=== PATIENT | female | born 1975 | race Two or more races ===

== ENCOUNTER 2017-05-09 12:37 | Emergency (ER) | payer MEDICAID ==
[~2017-05-09] VITALS: Wt 62.3 kg
[2017-05-09] MEDS ORDERED: SOD CHLORIDE 0.9% 1,000 ML IV STA (14:29)
[2017-05-09] MEDS ORDERED: morphine 4 MG/ML VIAL IV STA (14:29)
[2017-05-09] MEDS ORDERED: ONDANSETRON 4 MG INJ IV STA (14:29)
[2017-05-09 15:17] LABS: BASOPHILS % 0.2 % (0.0-2.0); EOSINOPHILS % 0.7 % (0.0-7.0); HEMATOCRIT 38.9 % (37.0-47.0); HEMOGLOBIN 12.7 g/dl (12.0-16.0); LYMPHOCYTES # 0.6 10^3/ul (0.8-2.9); LYMPHOCYTES % 10.7 % (15.0-51.0); MEAN CORPUSCULAR HGB CONC 32.6 g/dl (32.0-37.0); MEAN CORPUSCULAR VOLUME 91.7 fl (82.0-101.0); MEAN PLATELET VOLUME 10.1 fl (7.4-10.4); MONOCYTE # 0.3 10^3/ul (0.3-0.9); MONOCYTES % 4.5 % (0.0-11.0); NEUTROPHILS % 83.7 % (39.0-77.0); PLATELET COUNT 267 10^3/UL (140-415); RED BLOOD COUNT 4.24 10^6/ul (4.20-5.40); RED CELL DISTRIBUTION WIDTH 12.6 % (11.5-14.5)
[2017-05-09 15:30] LABS: ADD UMIC NO; UR ASCORBIC ACID NEGATIVE (NEGATIVE); UR BILIRUBIN (Dip) NEGATIVE (NEGATIVE); UR BLOOD (Dip) NEGATIVE (NEGATIVE); UR CLARITY CLEAR (CLEAR); UR COLOR STRAW (YELLOW); UR GLUCOSE (Dip) NEGATIVE (NEGATIVE); UR KETONES (Dip) NEGATIVE (NEGATIVE); UR LEUKOCYTE ESTERASE (Dip) NEGATIVE Leu/ul (NEGATIVE); UR NITRITE (Dip) NEGATIVE (NEGATIVE); UR SPECIFIC GRAVITY (Dip) 1.004 (1.003-1.030); UR TOTAL PROTEIN (Dip) NEGATIVE (NEGATIVE); UR UROBILINOGEN (Dip) NEGATIVE (NEGATIVE)
[2017-05-09 15:48] LABS: ALBUMIN 4.3 g/dl (3.3-4.9); ALBUMIN/GLOBULIN RATIO 1.48; BILIRUBIN,INDIRECT 0.4 mg/dl (0-1.1); BILIRUBIN,TOTAL 0.4 mg/dl (0.2-1.3); CALCIUM 8.5 mg/dl (8.4-10.2); CREATININE 0.59 mg/dl (0.44-1.00); POTASSIUM 3.6 mmol/L (3.5-5.1); TOTAL PROTEIN 7.2 g/dl (6.1-8.1)
--- NOTE | 2017-05-09 16:25 | RADRPT ---
PROCEDURE: CT abdomen and pelvis without contrast. CLINICAL INDICATION: Left lower quadrant abdominal pain. TECHNIQUE: CT of the abdomen and pelvis was performed without contrast. Coronal and sagittal reform atted images were obtained from the axial source images. Images were reviewed on a high-resolution [employer] workstation. The total exam CTDI equals 8.53 mGy and the total exam DLP equals 458.4 mGy-cm. DIC OM images are available. One or more of the following dose reduction techniques were used: - Automated exposure control. - Adjustment of the mA and/or kV according to patient size. - Use of iterative reconstruction technique. COMPARISON: Pelvic ultrasound dated 05/09/2017. FINDINGS: Visualized lower thorax: The visualized lung bases are clear. The visualized heart is unremarkable. There is a small hiatal hernia. Hepatobiliary system and spleen: The liver is grossly unremarkable. There is no intra or extrahepat ic biliary ductal dilatation. The gallbladder is grossly unremarkable. The spleen is grossly unremar kable. The pancreas is grossly unremarkable. Adrenal glands and genitourinary system: The adrenal glands are grossly unremarkable. There is no n ephrolithiasis or hydronephrosis. The urinary bladder is grossly unremarkable. There is a simple ap pearing 3 cm left ovarian cyst. The uterus and adnexa are otherwise grossly unremarkable. Gastrointestinal system: There is no bowel wall thickening or evidence of obstruction. The appendix is in the right lower quadrant and is unremarkable. Peritoneum, vascular, and lymphatics: There is no free intraperitoneal air or free fluid. There is no mesenteric or retroperitoneal adenopathy. The aorta is nonaneurysmal. There is a small fat contai pippa umbilical hernia. Musculoskeletal system and soft tissues: There are no concerning osseous lesions. The soft tissues are unremarkable. IMPRESSION: 1. No acute abnormality or findings to suggest a source of the patient's symptoms. 2. Small hiatal hernia. 3. Benign, simple appearing 3 cm left ovarian cyst. Pelvic ultrasound can be performed as clinicall y warranted, given the patient's symptoms. 4. Small fat containing umbilical hernia. RPTAT: HLBP .Avtar Damon MD, Date Time Electronically viewed and signed by .Avtar Damon MD, on 05/09/2017 16:25 .P/
--- NOTE | 2017-05-09 16:29 | RADRPT ---
PROCEDURE: US pelvis CLINICAL INDICATION: Pelvic pain for 4 days TECHNIQUE: Transabdominal and endovaginal pelvic sonography was performed COMPARISON: None available FINDINGS: The patient's last menstrual period began on 02/27/2017. The partially distended bladder is unremarkable. Physiologic amount of free pelvic fluid. Slightly dilated left parametrial veins. Uterus: Size: 10.7 x 5.0 x 6.9 cm Presentation: Anteverted, anteflexed Appearance: Homogeneous echotexture Endometrium: 1.4 mm in thickness. No mass or increased vascularity seen. Cervix: Limited visualization of the cervix reveals no abnormality. The right ovary is not visualized. Left ovary: Size: Not measured; the left ovary is not seen in its entirety Appearance: 2.6 x 2.8 x 2.8 cm left ovary cyst. Blood flow: Not assessed IMPRESSION: 1. Right ovary not visualized. Small left ovary cyst. The left ovary is not seen in its entirety an d thus not optimally assessed. 2. Slightly enlarged uterus is unremarkable. If clinically indicated, correlate with serum test. RPTAT: TT Physician Fernandez Date Time Electronically viewed and signed by Physician Fernandez on 05/09/2017 16:29 JS/
[2017-05-09] MEDS ORDERED: IBUP-1542 PO (16:50)
[2017-05-09] MEDS ORDERED: HYDR-906 PO (16:51)
--- NOTE | 2017-05-09 17:11 | ERD ---
ER Documentation Chief Complaint Chief Complaint HEADACHE, NAUSEA, ABD PAIN, ONSET 1 WEEK HPI 42-year-old female presents to the ER with multiple complaints. Patient states that she has had headaches for the last month and has nausea, and nonbilious nonbloody vomiting. Denies any trauma she denies any photophobia. He denies any fevers or chills. Patient is also complaining of lower pelvic pain which started 3 months ago and has been intermittent. She denies any vaginal discharge. She denies any urinary frequency or dysuria. She denies any diarrhea. Her last normal menstrual period was 3 months ago, however she is taking control. ROS 12 point review of systems was done, all negative except per HPI. Medications Home Meds Active Scripts Hydrocodone/Acetaminophen ([place] 5-325 Tablet) 1 Each Tablet, 1 TAB PO Q6H Y for PAIN, #10 TAB Prov:ETHAN CHAMPION 05/09/17 Ibuprofen* (Motrin*) 600 Mg Tab, 600 MG PO Q6, #30 TAB Prov:AKIRAETHAN C 05/09/17 Allergies Allergies: Coded Allergies: No Known Drug Allergies (Verified Allergy, Unknown, 06/24/11) PMhx/Soc Medical and Surgical Hx: pt denies Medical Hx, pt denies Surgical Hx Hx Alcohol Use: No Hx Substance Use: No Hx Tobacco Use: No Smoking Status: Never smoker Physical Exam Vitals Vital Signs Date Time Temp Pulse Resp B/P Pulse Ox O2 Delivery O2 Flow Rate FiO2 05/09/17 12:40 98.0 93 18 154/93 100 Physical Exam GENERAL: The patient is well developed and appropriate for usual state of health , in no apparent distress. HEENT: Atraumatic. CHEST: Clear to auscultation bilaterally. There are no rales, wheezes or rhonchi. HEART: Regular rate and rhythm. No murmurs, clicks, rubs or gallops. ABDOMEN: tender to palpation in the left pelvic area. no rebound tenderness, gaurding or peritoneal signs. NEURO: Alert and oriented. CN 2-12 are intact. negative rhomberg sign SKIN: The skin is warm and dry. Result Diagram: 05/09/17 1450 05/09/17 1450 Results 24 hrs Laboratory Tests Test 05/09/17 14:40 05/09/17 14:50 Urine Color STRAW Urine Clarity CLEAR Urine pH 8.0 Urine Specific [place] 1.004 Urine Ketones NEGATIVEmg/dL Urine Nitrite NEGATIVEmg/dL Urine Bilirubin NEGATIVEmg/dL Urine Urobilinogen NEGATIVEmg/dL Urine Leukocyte Esterase NEGATIVELeu/ul Urine Hemoglobin NEGATIVEmg/dL Urine Glucose NEGATIVEmg/dL Urine Total Protein NEGATIVEmg/dl White Blood Count 6.010^3/ul Red Blood Count 4.2410^6/ul Hemoglobin 12.7g/dl Hematocrit 38.9% Mean Corpuscular Volume 91.7fl Mean Corpuscular Hemoglobin 30.0pg Mean Corpuscular Hemoglobin Concent 32.6g/dl Red Cell Distribution Width 12.6% Platelet Count 70931^3/UL Mean Platelet Volume 10.1fl Neutrophils % 83.7% Lymphocytes % 10.7% Monocytes % 4.5% Eosinophils % 0.7% Basophils % 0.2% Nucleated Red Blood Cells % 0.0/100WBC Neutrophils # 5.010^3/ul Lymphocytes # 0.610^3/ul Monocytes # 0.310^3/ul Eosinophils # 0.010^3/ul Basophils # 0.010^3/ul Nucleated Red Blood Cells # 0.010^3/ul Sodium Level 139mmol/L Potassium Level 3.6mmol/L Chloride Level 102mmol/L Carbon Dioxide Level 27mmol/L Anion Gap 14 Blood Urea Nitrogen 9mg/dl Creatinine 0.59mg/dl Glucose Level 96mg/dl Calcium Level 8.5mg/dl Total Bilirubin 0.4mg/dl Direct Bilirubin 0.00mg/dl Indirect Bilirubin 0.4mg/dl Aspartate Amino Transf (AST/SGOT) 27IU/L Alanine Aminotransferase (ALT/SGPT) 38IU/L Alkaline Phosphatase 84IU/L Total Protein 7.2g/dl Albumin 4.3g/dl Globulin 2.90g/dl Albumin/Globulin Ratio 1.48 Lipase 84U/L Current Medications Medications (Trade) Dose Ordered Sig/Mumtaz Route PRN Reason Start Time Stop Time Status Last Admin Dose Admin Sodium Chloride (NS) 1,000 ml @ 1,000 mls/hr Q1H STAT IV 05/09/17 14:29 05/09/17 15:28 DC 05/09/17 15:00 Morphine Sulfate (morphine) 4 mg ONCE STAT IV 05/09/17 14:29 11/30/17 14:31 DC 05/09/17 15:01 Ondansetron HCl (Zofran Inj) 4 mg ONCE STAT IV 05/09/17 14:29 05/09/17 14:31 DC 05/09/17 15:00 Procedures/MDM Is a 42-year-old female presents to the ER with multiple complaints. In regards to patients headache, Differential Diagnosis includes but is not limited to; tension headache, migraine headache, cluster headache, sinus headache, nonspecific febrile headache, trigeminal neurologia, subdural hematoma , subarachnoid bleeding, meningitis, encephalitis. Patient is neurologically intact with no focal neurological deficits. Patient is afebrile and extremely well-appearing I doubt meningitis or encephalitis. She does not have any history of trauma I doubt intracranial bleed. Patient likely has a migraine disorder and she will be sent home with ibuprofen for the pain. Regards to patient's lower abdominal pain suspicion for acute abdomen is low, patient's physical examination was benign, and she does have an ovarian cyst in the area where she is complaining of the most pain. Suspicion for torsion is low. She will be given [place] for ovarian cyst. Patient urgently needs to follow-up with her primary care doctor and see an [employer] HELPER as soon as possible. I shared my medical decision making with the patient she understands and agrees with plan. Departure Diagnosis: Primary Impression: Ovarian cyst Additional Impression: Multiple complaints Condition: Stable Patient Instructions: Ovarian Cyst Additional Instructions: Call your primary care doctor TOMORROW for an appointment during the next 1-2 days.See the doctor sooner or return here if your condition worsens before your appointment time. ETHAN CHAMPION May 09, 2017 17:11
[2017-05-09 18:20] VITALS: BP 145/87; PULSE 76; RESP 18; TEMP 98
== END 2017-05-09 18:22 | disposition home or self-care (01) ==
LOC: FTE 12:37
DX: N83.202 Unspecified ovarian cyst, left side (principal); R11.2 Nausea with vomiting, unspecified
CPT/HCPCS: 36415; 74176; 76830; 76856; 80053; 81003; 83690; 85025; 96361; 96374; 96375; J2270; J2405; J7030; Z7502

== ENCOUNTER 2017-08-01 08:21 | Emergency (ER) | END 2017-08-01 10:10 | disposition home or self-care (01) ==